=== PATIENT | male | born 1985 | race Caucasian/White ===

== ENCOUNTER 2025-08-20 17:38 | Emergency (ER) | payer OTHER, SELFPAY ==
[2025-08-20 17:39] VITALS: BP 171/107; PULSE 110; RESP 18; TEMP 35.9; O2SAT 98
--- NOTE | 2025-08-20 19:50 | RAD_ITS ---
PROCEDURE: TOE(S) MIN 2 VIEWS 08/20/2025 REASON FOR EXAM: PAIN AND SWELLING MTP JOINT GREAT TOE TECHNIQUE: Procedure Code: RADTO Modality: DX Procedure: TOE(S) MIN 2 VIEWS Laterality: Left RAD/Toe(s) Min 2 Views IMPRESSION: No acute fracture or dislocations. Moderate soft tissue edema. Slight increased radiopacity at the 1st MTP joint space, nonspecific Reading Location: [id number]
--- OUTSIDE RECORDS SUMMARY | 2025-08-20 20:10 | XMS RPT_ITS | CCD ---
Author Organization [employer] ([employer] [facility] Results Test Name Value Interpretation Reference Range Facil ity NM MYOCARDIAL SPECT STRESS/R ESTon 10-24-2019 NM MYOCARDIAL SPECT STRESS/REST ORIGINAL NM MYOCARDIAL SPECT STRESS/REST CLINICAL STATEMENT:Chest pain or palpitations, intermediate probe, interpretable ECG and can exercise TECHNIQUE: Stress Protocol:Donato Time Exercised:9 minutes Predicted Max HR:188 beats per minute Max HR Achieved:184 beats per minute. Percent Max HR:97 Peak Systolic BP:184 mmHg Rate-Pressure product: 29,400 Radiopharmaceutical( rest): Tc-99m Sestamibi IV Dose:28.6 mCi Radiopharmaceutical( stress): Tc-99m Sestamibi IV Dose:32.0 mCi SPECT acquisition: SPECT reconstruction and reorientation into short axis, vertical and horizontal long axis planes Quantitative LVEF assessment COMPARISON:None REPORT:The LEFT ventricle is normal in size. On gated imaging the ejection fraction is normal at 57% with normal wall motion. There is significant attenuation due to the patient's large size. There is a decrease in the uptake of activity in the anteroseptal and inferior mcleod with no significant improvement in any region on rest images. IMPRESSION: 1. Technically difficult study due to the patient's large size. There was soft tissue attenuation artifact. 2. No evidence of significant inducible ischemia or prior infarction. 3. Normal ejection fraction of 57% with normal wall motion. Interpreted By: Gerardo Simeon MD Preliminary Report By: Gerardo Simeon MD Electronically Signed By: Gerardo Simeon MD Dictated Date: 10/24/2019 5:28:41 PM Prelim Date: 10/24/2019 5:28:41 PM Sign Date: 10/24/2019 5:33:02 PM Ordering Provider:Aidan Quinonez [facility] ([place]) .Auto Diffon 10-14-2019 Ammonia (P) [Mass/Vol] 0.60 10 3/mcL Normal 0.15-1.00 [facility] ([place]) Comment on above: Performed By: #### C BC, ADIFF, ANEU #### [address] [address] #### BMP, TSH, GFR #### [address] [address] Basophils (Bld) [#/Vol] 0.10 10 3/mcL Normal 0.00-0.19 [facility] ([place]) Comment on above: Performed By: #### C BC, ADIFF, ANEU #### [place] [address] #### BMP, TSH, GFR #### [address] [address] Basophils/100 WBC (Bld) 0.6 % Normal 0.0-2.5 [facility] ([place]) Comment on above: Performed By: #### C BC, ADIFF, ANEU #### [place] [address] #### BMP, TSH, GFR #### [address] [address] Eosinophils (Bld) [#/Vol] 0.10 10 3/mcL Normal 0.00-0.40 [facility] ([place]) Comment on above: Performed By: #### C BC, ADIFF, ANEU #### [place] [address] #### BMP, TSH, GFR #### [address] [address] Eosinophils/100 WBC (Bld) 1.6 % Normal 0.0-7.0 [facility] ([place]) Comment on above: Performed By: #### C BC, ADIFF, ANEU #### [address] [address] #### BMP, TSH, GFR #### [address] [address] Lymphocytes (Bld) [#/Vol] 2.60 10 3/mcL Normal 0.77-3.85 [facility] ([place]) Comment on above: Performed By: #### C BC, ADIFF, ANEU #### [address] [address] #### BMP, TSH, GFR #### [address] [address] Lymphocytes/100 WBC (Bld) 27.2 % Normal 10.0-50.0 [facility] ([place]) Comment on above: Performed By: #### C BC, ADIFF, ANEU #### [address] [address] #### BMP, TSH, GFR #### [address] [address] Monocytes/100 WBC (Bld) 6.5 % Normal 1.7-13.0 [facility] ([place]) Comment on above: Performed By: #### C BC, ADIFF, ANEU #### [address] [address] #### BMP, TSH, GFR #### [address] [address] Neutrophils/100 WBC (Bld) 64.1 % Normal 37.0-80.0 [facility] ([place]) Comment on above: Performed By: #### C BC ADIFF, ANEU #### [address] [address] #### BMP, TSH, GFR #### [address] [address] .GFRon 10-14-2019 GFR Non- 89 ml/min/1.73sqm Normal [facility] ([place]) Comment on above: Result Comment: GFR Population mean for , Non- Americans Ages 20-29 = 116 mL/min/1.73 sq.m. Ages 30-39 = 107 mL/min/1.73 sq.m. Ages 40-49 = 99 mL/min/1.73 sq.m. Ages 50-59 = 93 mL/min/1.73 sq.m. Ages 60-69 = 85 mL/min/1.73 sq.m. Ages 70+ = 75 mL/min/1.73 sq.m. Chronic Kidney Disease: Less than 60 mL/min/1.73 square meters End Stage Renal Disease: Less than 15 mL/min/1.73 square meters Performed By: #### C BC ADIFF, ANEU #### [address] [address] #### BMP, TSH, GFR #### [address] [address] GFR 107 ml/min/1.73sqm Normal [facility] ([place]) Comment on above: Result Comment: GFR Population mean for , Non- Americans Ages 20-29 = 116 mL/min/1.73 sq.m. Ages 30-39 = 107 mL/min/1.73 sq.m. Ages 40-49 = 99 mL/min/1.73 sq.m. Ages 50-59 = 93 mL/min/1.73 sq.m. Ages 60-69 = 85 mL/min/1.73 sq.m. Ages 70+ = 75 mL/min/1.73 sq.m. Chronic Kidney Disease: Less than 60 mL/min/1.73 square meters End Stage Renal Disease: Less than 15 mL/min/1.73 square meters Performed By: #### C BCWILLIAM, ANEU #### [address] [address] #### BMP, TSH, GFR #### [address] [address] .NEUABSon 10-14-2019 Neutrophils (Bld) [#/Vol] 6.00 10 3/mcL Normal 2.85-6.16 [facility] ([place]) Comment on above: Performed By: #### C BCRAMSESIFF, ANEU #### [address] [address] #### BMP, TSH, GFR #### [address] [address] BMPon 10-14-2019 Calcium [Mass/Vol] 8.8 mg/dL Normal 8.4-10.2 [facility] ([place]) Comment on above: Performed By: #### C BC, ADIFF, ANEU #### [address] [address] #### BMP, TSH, GFR #### [address] [address] Chloride [Moles/Vol] 104 mmol/L Normal 98-107 [facility] ([place]) Comment on above: Performed By: #### C BC, ADIFF, ANEU #### [address] [address] #### BMP, TSH, GFR #### [address] [address] CO2 [Moles/Vol] 27 mmol/L Normal 22-29 [facility] ([place]) Comment on above: Performed By: #### C BC, ADIFF, ANEU #### [address] [address] #### BMP, TSH, GFR #### [address] [address] Creatinine [Mass/Vol] 0.98 mg/dL Normal 0.70-1.30 [facility] ([place]) Comment on above: Performed By: #### C BC, ADIFF, ANEU #### [address] [address] #### BMP, TSH, GFR #### [address] [address] Electrolyte Balance 10.0 mEq/L Normal [facility] ([place]) Comment on above: Performed By: #### C BC, ADIFF, ANEU #### [address] [address] #### BMP, TSH, GFR #### [address] [address] Glucose [Mass/Vol] 98 mg/dL Normal 70-105 [facility] ([place]) Comment on above: Performed By: #### C BC, ADIFF, ANEU #### [address] [address] #### BMP, TSH, GFR #### [address] [address] Potassium [Moles/Vol] 4.1 mmol/L Normal 3.5-5.1 [facility] ([place]) Comment on above: Performed By: #### C BC, ADIFF, ANEU #### [address] [address] #### BMP, TSH, GFR #### [address] [address] Sodium [Moles/Vol] 141 mmol/L Normal 136-145 [facility] ([place]) Comment on above: Performed By: #### C BC, ADIFF, ANEU #### [address] [address] #### BMP, TSH, GFR #### [address] [address] Urea nitrogen [Mass/Vol] 15 mg/dL Normal 7-18 [facility] ([place]) Comment on above: Performed By: #### C BC ADIFF, ANEU #### [address] [address] #### BMP, TSH, GFR #### [address] [address] Urea nitrogen/Creatinine [Mass ratio] 15 ratio Normal 7-27 [facility] ([place]) Comment on above: Performed By: #### C BC, ADIFF, ANEU #### [address] [address] #### BMP, TSH, GFR #### [address] [address] CBCon 10-14-2019 Erythrocyte distribution width (RBC) [Ratio] 12.9 % Normal 11.5-14.5 [facility] ([place]) Comment on above: Performed By: #### C BC, ADIFF, ANEU #### [address] [address] #### BMP, TSH, GFR #### [address] [address] Hematocrit (Bld) [Volume fraction] 46.8 % Normal 42.0-52.0 [facility] ([place]) Comment on above: Performed By: #### C BC, ADIFF, ANEU #### [address] [address] #### BMP, TSH, GFR #### [address] [address] Hemoglobin (Bld) [Mass/Vol] 15.3 G/dL Normal 14.0-18.0 [facility] ([place]) Comment on above: Performed By: #### C BC, ADIFF, ANEU #### [place] [address] #### BMP, TSH, GFR #### [address] [address] MCH (RBC) [Entitic mass] 28.7 pg Normal 27.0-31.2 [facility] ([place]) Comment on above: Performed By: #### C BC, ADIFF, ANEU #### [place] [address] #### BMP, TSH, GFR #### [place] [address] MCHC (RBC) [Mass/Vol] 32.6 G/dL Normal 31.8-35.4 [facility] ([place] Comment on above: Performed By: #### C BC, ADIFF, ANEU #### [place] [address] #### BMP, TSH, GFR #### [place] [address] MCV (RBC) [Entitic vol] 88.1 fL Normal 80.0-94.0 [facility] ([place]) Comment on above: Performed By: #### C BC, ADIFF, ANEU #### [place] [address] #### BMP, TSH, GFR #### [place] [address] Platelet mean volume (Bld) [Entitic vol] 7.1 fL Low 7.4-10.4 [facility] ([place] Comment on above: Performed By: #### C BC, ADIFF, ANEU #### [address] [address] #### BMP, TSH, GFR #### [address] [address] Platelets (Bld) [#/Vol] 248 10 3/mcL Normal 130-400 [facility] ([place]) Comment on above: Performed By: #### C BC, ADIFF, ANEU #### [place] [address] #### BMP, TSH, GFR #### [address] [address] RBC (Bld) [#/Vol] 5.32 10 6/mcL Normal 4.04-6.13 [facility] ([place]) Comment on above: Performed By: #### C BC, ADIFF, ANEU #### [place] [address] #### BMP, TSH, GFR #### [place] [address] WBC (Bld) [#/Vol] 9.40 10 3/mcL Normal 4.60-10.80 [facility] ([place]) Comment on above: Performed By: #### C BC, ADIFF, ANEU #### [place] [address] #### BMP, TSH, GFR #### [place] [address] TSHon 10-14-2019 TSH Qn 1.04 mcIU/mL Normal 0.36-3.74 [facility] ([place]) Comment on above: Performed By: #### C BC, ADIFF, ANEU #### [place] [address] #### BMP, TSH, GFR #### [place] [address] Summary Purpose Family History No Family History Records Found Advance Directives No Advanced Directives Records Found Additional Source Comments (unrecognized sect ion and content) No Status Records Found INFORMATION SOURCE (unrecogn ized section and content) DATE CREATED AUTHOR 01/05/2020 [facility] [place] ([place]) FOR RECORDS PERTAINING TO PATIENTS WHO ARE OR HAVE BEEN ENROLLED IN A CHEMICAL DEPENDENCY/SUBSTANCEABUSE PROGRAM, SOME INFORMATION MAY BE OMITTED. This clinical summary was aggregated from multiple sources. Caution should be exercised in using it in the provision of clinical care. This summary normalizes information from multiple sources, and as a consequence, information in this document may materially change the coding, format and clinical context of patient data. In addition, data may be omitted in some cases. CLINICAL DECISIONS SHOULD BE BASED ON THE PRIMARY CLINICAL RECORDS. [facility] [employer] [facility]. provides no warranty or guarantee of the accuracy or completeness of information in this document.
[2025-08-20 20:14] LABS: Hematocrit 46.2 % (40-54); Hemoglobin 15.7 g/dL (13.0-16.5); Immature Granulocytes Count 0.030 X10^3/uL (0.0-0.0); Mean Corp Hgb Conc 34.0 g/dL (32-36); Mean Corpuscular Volume 86.0 fL (80-94); Mean Platelet Vol. 8.9 fl (6.2-12.0); NRBC Flagged by Analyzer 0 % (0-5); Platelet Count 294 K/mm3 (150-450); RBC Distribution Width CV 12.3 % (11.6-14.6); RBC Distribution Width SD 38.7 fl (35.1-43.9); Red Blood Count 5.37 M/mm3 (4.6-6.2); White Blood Count 9.0 K/mm3 (4.4-11.0)
[2025-08-20 20:22] LABS: Anion Gap 12 (5-15); BUN 13 mg/dL (4-19); BUN/Creat Ratio 11.3 RATIO (10-20); Calcium,Total 9.4 mg/dL (7.6-11.0); Carbon Dioxide 25.3 mmol/L (21.0-32.0); Chloride 103 mmol/L (98-108); Glucose 95 mg/dL (70-99); Potassium 4.7 mmol/L (3.3-5.1)
--- NOTE | 2025-08-20 20:58 | EDS_ITS ---
HPI History of Present Illness Chief Complaint: Cellulitis Detail of Chief Complaint: Patient concern he has cellulitis Informant: patient Onset/Context/Timing Onset: Days (Pain started 3 to 4 days ago) Context: Sudden Onset Timing: Continuous Quality: Pain MTP joint left great toe Location: MTP joint left great toe Current Severity: Moderate Maximum Severity: Severe Worsened by: Putting on a sock, walking, movement of his toe Relieved by: Nothing Associated Symptoms Associated Symptoms: No constitutional symptoms Narrative Narrative: Patient 40-year-old male on no medication with no past medical history presents with atraumatic left great toe pain. Been going on for 3 to 4 days. His foot has swollen and has become red. He is concerned he has cellulitis. He denies fever, chills night sweats. Eyes paresthesia, anesthesia buttocks. He denies history of gout or pseudogout. He is not diabetic. Prior similar symptoms: No Recent Illness/Hospitalization: No PFSH PFSH Medical History no medical history no medical history Home Medications ?Medication ?Instructions ?Recorded ?Last Taken ?Type prednisone 20 mg tablet 60 mg (3 x 20 mg) PO DAILY # 15 08/20/25 Unknown Rx TABLETS Allergy/AdvReac Type Severity Reaction Status Date / Time No Known Allergies Allergy Verified 08/20/25 17:39 Surgical History no surgical history Social History Smoking Status: Current some day smoker tobacco type: cigars ROS ROS ED Constitutional Constitutional ED: Denies chills, fever(s) or subjective Genitourinary Genitourinary ED: Denies dysuria, hematuria or urinary frequency Musculoskeletal Musculoskeletal: Denies arthralgias or myalgias Integumentary Denies rash Neurologic Neurologic: Denies paresthesias or weakness Hematologic/Lymphatic Hematologic/Lymphatic: Reports systems reviewed and no addt'l complaints, except as documented EXAM Physical Exam Const Vital Signs: 08/20/25 17:39 08/20/25 21:03 Temperature 96.6 F L 96.6 F L Temperature Source Temporal Pulse Rate 110 H 80 Respiratory Rate 18 18 Blood Pressure 171/107 H 158/80 H Blood Pressure Mean 128 106 Pulse Ox 98 98 Oxygen Delivery Method Room Air Positive well nourished and well developed Constitutional Narrative: Patient appears uncomfortable. Blood pressure is elevated. This may be due to pain. General Appearance ED: well developed; Negative for pallor HEENT Reports moist mucous membranes HEENT Narrative: Head is atraumatic and normocephalic. Eyes PERRL and EOMs intact bilaterally Neck no JVD Resp normal respiratory effort Cardio regular rate and regular rhythm Extremity Negative for normal to inspection Extremity Narrative: There is swelling with erythema of the left foot and great toe. There is no induration. There is no warmth. He does have pain over the MTP joint of his l eft great toe. There is no lymphangitis. There is no popliteal lymphadenopathy. There is no swelling, discoloration, leg pain distention, palp cords tenderness on distribution deep venous system. His symptoms are isolated to the foot. Neuro oriented x3 and CN's II-XII intact bilaterally Sensorium / Orientation: alert Psych mental status grossly normal Skin no rashes or lesions noted, no wounds and skin turgor normal General Skin Exam: elasticity normal; Negative for jaundice or pallor MDM MDM MDM Narrative Medical decision making narrative: Differential diagnosis is crystal induced monotypic arthritis versus pyogenic arthritis versus degenerative arthritis. Patient's blood pressure was monitored. He was treated with IV ketorolac. He states he had little improvement. Patient's workup included CBC, electrolyte panel and ESR. Since he has no evidence of endorgan dysfunction he will need to follow-up with his doctor for reevaluation of blood pressure. His blood pressure may be elevated due to the fact he is in pain. He was treated with hydrocodone and prednisone prior to discharge. He was given a prescription for prednisone. Lab Data Attestation: I reviewed the patient's lab results. Lab results narrative: CBC is normal. Base metabolic panel is normal. Sed rate is normal. Labs: Laboratory Results - last 24 hr 08/20/25 19:28 WBC 9.0 RBC 5.37 Hgb 15.7 Hct 46.2 MCV 86.0 MCH 29.2 MCHC 34.0 RDW Std Deviation 38.7 RDW Coeff of Amy 12.3 Plt Count 294 MPV 8.9 Immature Gran % (Auto) 0.300 Neut % (Auto) 53.8 Lymph % (Auto) 34.8 [place] % (Auto) 8.0 Eos % (Auto) 2.5 Baso % (Auto) 0.6 Absolute Neuts (auto) 4.8 Absolute Lymphs (auto) 3.12 Nucleated RBC % 0 ESR 8 Sodium 140 Potassium 4.7 Chloride 103 Carbon Dioxide 25.3 Anion Gap 12 BUN 13 Creatinine 1.16 Est GFR (MDRD) Non-Af 83 BUN/Creatinine Ratio 11.3 Glucose 95 Calcium 9.4 Radiography Chest X-Ray - ED: Read by ED Physician (Three-view x-ray of the toe reveals increased radiopacity of the MTP joint left great toe. There is no chondrocalci nosis noted. There is no bony destruction noted.) Diagnostic Testing: Clinical Impression(s) from Imaging Studies Toe X-Ray 08/20/25 19:50 IMPRESSION: No acute fracture or dislocations. Moderate soft tissue edema. Slight increased radiopacity at the 1st MTP joint space, nonspecific Reading Location: [facility] Discharge Plan Triage Chief Complaint: Cellulitis ED Provider: Guy Goodman Dx/Rx/DC Orders Clinical Impression: Gout attack, Pain of left great toe, Elevated blood-pressure reading without diagnosis of hypertension, Tachycardia Instructions: ED Gout, ED Hypertension, To Be Confirmed, ED Gout Diet Prescriptions: New prednisone 20 mg tablet 60 mg PO DAILY Qty: 15 0RF Primary Care Provider: Care Physician,No Primary Referrals: Care Physician,No Primary [Primary Care Provider, Medical] Print Language: Slovak Disposition Disposition: Home, Self Care
[2025-08-20 21:03] VITALS: BP 158/80; PULSE 80; RESP 18; TEMP 35.9; O2SAT 98
[2025-08-20] MEDS: HYDROcodone Bitartrate/Apap 5/325 Tablet PO (21:09)
== END 2025-08-20 21:11 | disposition home or self-care (01) ==
PROVIDERS: Emergency Provider Emergency Medicine; Visit Provider Emergency Medicine
DX: M10.9 Gout, unspecified (principal); R00.0 Tachycardia, unspecified; M79.675 Pain in left toe(s); R03.0 Elevated blood-pressure reading, without diagnosis of hypertension; F17.200 Nicotine dependence, unspecified, uncomplicated
CPT/HCPCS: 73660; 80048; 85025; 85652; 96374; 99282; A4216